=== PATIENT | male | born 2000 | race African-American/Black ===

== ENCOUNTER 2025-01-08 22:47 | Emergency (ER) | payer MEDICAID ==
[~2025-01-08] VITALS: Ht 177.8 cm; Wt 61.4 kg
[2025-01-08 23:07] VITALS: TEMP 98
[2025-01-09] MEDS: ACETAMINOPHEN 325 MG TABLET PO ONE (00:31)
[2025-01-09] MEDS: IBUPROFEN 400 MG TABLET PO ONE (00:31)
[2025-01-09 03:00] VITALS: BP 115/70; PULSE 70; RESP 18; O2SAT 99
== END 2025-01-09 04:05 | disposition home or self-care (01) ==
LOC: EMS 22:49
DX: S00.83XA Contusion of other part of head, initial encounter (principal); S80.211A Abrasion, right knee, initial encounter; S80.212A Abrasion, left knee, initial encounter; F17.210 Nicotine dependence, cigarettes, uncomplicated; Y04.0XXA Assault by unarmed brawl or fight, initial encounter; Y93.89 Activity, other specified; Y92.89 Other specified places as the place of occurrence of the external cause; Y99.9 Unspecified external cause status
CPT/HCPCS: 70486; 99284; Z7502; Z7610